=== PATIENT | female | born 1985 | race Caucasian/White ===

== ENCOUNTER 2016-05-31 04:46 | Emergency (ER) | payer MEDICAID ==
[2016-05-31 06:13] VITALS: BP 125/82
== END 2016-05-31 06:13 | disposition home or self-care (01) ==
LOC: ED 04:46
DX: R10.9 Unspecified abdominal pain (principal); E11.9 Type 2 diabetes mellitus without complications; R05 Cough; Z79.84 Long term (current) use of oral hypoglycemic drugs
CPT/HCPCS: J1885; J2270